=== PATIENT | male | born 1975 | race Caucasian/White ===

== ENCOUNTER → 2016-12-11 | Outpatient (CLI) | payer BC ==
--- NOTE | 2016-12-12 16:57 | MR ---
EXAMINATION TYPE: MR brain wo/w con DATE OF EXAM: 12/11/2016 9:30 AM COMPARISON: NONE HISTORY: Memory loss, headaches CONTRAST: Performed utilizing 15 mL intravenous MultiHance gadolinium contrast. TECHNIQUE: Multiplanar, multiecho imaging on a 3.0 Sury magnet is performed through the brain. Stud y is performed within 24 hours of arrival to the hospital. The craniovertebral junction is normal. The pituitary is normal. Diffusion-weighted imaging is performed. No abnormal hyperintensity is present to suggest an acute i ntracranial infarct or acute ischemic change. Signal within the brain appears within normal limits. No abnormal enhancement is evident following co ntrast administration. Quadrigeminal plate and ambient cistern are normal. No midline shift is evident. Optic chiasm appears normal. Suprasellar cistern is normal. The petrous ridges appear normal. There is prominence of the lateral ventricles. Temporal horn dilatation is not identified. Third vent ricle is prominent. Fourth ventricle is normal in the midline. Sulci are more normal appearance. Some hydrocephalus may be present. Mucosal thickening is within the bilateral maxillary sinuses, greater on the left. Mucosal thickening is throughout left ethmoid air cells and sphenoid sinus. The left frontal sinus is opacification. Co rrelate for pansinusitis. IMPRESSIONS: 1. Clinical correlation recommended for mild hydrocephalus. 2. Correlate for pansinusitis
== END | disposition home or self-care (01) ==
LOC: RADMRIMAIN 08:37
PROVIDERS: ATTEND Physician Assistant
DX: R41.3 Other amnesia (principal); G44.209 Tension-type headache, unspecified, not intractable; E34.3 Short stature due to endocrine disorder
CPT/HCPCS: 70553; A9577

== ENCOUNTER → 2019-07-20 | Outpatient (CLI) | payer BC ==
--- NOTE | 2019-07-20 14:19 | CT ---
EXAMINATION TYPE: CT abdomen pelvis w con DATE OF EXAM: 07/20/2019 COMPARISON: None. HISTORY: Left upper quadrant pain with nausea and vomiting. CT DLP: 554.3 mGycm, Automated Exposure Control for Dose Reduction was Utilized. CONTRAST: CT scan of the abdomen and pelvis is performed with oral and with IV Contrast, patient injected with 100 mL of Isovue M300. FINDINGS: LUNG BASES: No significant abnormality is appreciated. LIVER/GB: No significant abnormality is appreciated. PANCREAS: No significant abnormality is seen. SPLEEN: No significant abnormality is seen. ADRENALS: No significant abnormality is seen. KIDNEYS: No significant abnormality is seen. BOWEL: Oral contrast reaches level of the splenic flexure. No suspicious small or large bowel dilatat ion. Suboptimal distention of the proximal to mid sigmoid colon with mild wall thickening makes evalu ation of this level suboptimal. Findings present probably due to poor distention. PROSTATE/SEMINAL VESICLES: No gross abnormality seen. LYMPH NODES: No greater than 1cm abdominal or pelvic lymph nodes are appreciated. OSSEOUS STRUCTURES: There is disc bulge along with facet arthropathy effacing anterior [place] lateral thecal sac causing spinal canal placement and/or stenosis axial image 60 at L4-L5 level. OTHER: No significant additional abnormality is seen. IMPRESSION: No significant acute finding is seen to account for patient's clinical symptoms of left upper quadrant pain.
== END ==
LOC: RADCTMAIN 11:43
PROVIDERS: ATTEND Family Medicine
DX: R10.12 Left upper quadrant pain (principal); R19.7 Diarrhea, unspecified; R11.2 Nausea with vomiting, unspecified
CPT/HCPCS: 74177; Q9967

== ENCOUNTER 2019-08-23 10:51 | Day surgery (SDC) | payer BC ==
[2019-08-21 16:48] VITALS: BMI 36.3
[~2019-08-23 10:51] MED LIST: LACTATED RINGERS 1,000 ML IV SCH; LIDOCAINE 1% 20 ML VIAL (10MG/ML) FOR IV START INTRADERMA PRN
[2019-08-23 11:11] VITALS: TEMP 98.1
[2019-08-23] MEDS ORDERED: PROPOFOL 10 MG/ML 20 ML VIAL IV ONE (11:37)
--- NOTE | 2019-08-23 12:08 | P.PCN ---
Date of Procedure: 08/23/19 Description of Procedure: BRIEF HISTORY: Patient is a 44-year-old pleasant male scheduled for an elective colonoscopy as a part of evaluation of altered bowel habits. The patient reports symptoms of increased frequency of bowel movements and right-sided abdominal pain for approximately one month. Abdominal pain has recently subsided the patient is still having 3-4 movements daily which is increased in frequency from his baseline of one to 2 formed bowel movements daily. However of all patient reports symptoms have improved. PROCEDURE PERFORMED: Colonoscopy. PREOPERATIVE DIAGNOSIS: Change in bowel habits, no prior colonoscopy. ESTIMATED BLOOD LOSS: Minimal. IV sedation per Anesthesia. PROCEDURE: After informed consent was obtained, the patient, was brought into the endoscopy unit. IV sedation was administered by Anesthesia under continuous monitoring. Digital rectal examination was normal. Initially the Olympus CF-190 flexible video colonoscope was then inserted in the rectum, gradually advanced into the cecum without any difficulty. Careful examination was performed as the scope was gradually being withdrawn. Ileocecal valve and the appendiceal orifice were visualized and appeared normal. Prep was excellent. Mucosa of the cecum, ascending colon, transverse colon, descending colon, sigmoid colon, and rectum appeared normal. Retroflexion was performed in the rectum and no lesions were seen. The patient tolerated the procedure well. IMPRESSION: Normal-appearing colon from rectum to cecum. RECOMMENDATIONS: Findings of this examination were discussed with the patient. Okay to resume diet. 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 Would continue symptomatic treatment. Otherwise, would recommend repeat colonoscopy in 10 years for screening purposes.
[2019-08-23 12:09] VITALS: PULSE 89; RESP 16
[2019-08-23 12:24] VITALS: BP 113/76
== END 2019-08-23 12:44 | disposition home or self-care (01) ==
LOC: ORWHC2ENDO 10:51
PROVIDERS: ATTEND Internal Medicine
DX: R19.4 Change in bowel habit (principal); E34.3 Short stature due to endocrine disorder; E66.9 Obesity, unspecified; Z88.0 Allergy status to penicillin; Z88.5 Allergy status to narcotic agent; Z90.89 Acquired absence of other organs; Z96.22 Myringotomy tube(s) status; Z68.36 Body mass index [BMI] 36.0-36.9, adult
CPT/HCPCS: 45378; J2704